=== PATIENT | female | born 1985 | race African-American/Black ===

== ENCOUNTER 2022-08-16 18:23 | Emergency (ER) | payer MEDICAID ==
[~2022-08-16] VITALS: Ht 170.2 cm; Wt 62.1 kg
[2022-08-16] MEDS ORDERED: HYDROMORPHONE 1 MG/1 ML DISP.SYRIN IM ONE (20:00)
[2022-08-16] MEDS ORDERED: ONDANSETRON ODT 4 MG TAB.RAPDIS SL ONE (20:00)
[2022-08-16] MEDS ORDERED: ONDANSETRON ODT 4 MG TAB.RAPDIS ONE (21:14)
[2022-08-16] MEDS ORDERED: HYDROMORPHONE 1 MG/1 ML DISP.SYRIN ONE (21:14)
--- NOTE | 2022-08-16 21:35 | NUR ---
Patient taken to CT via [facility] accompanied by
[2022-08-16] MEDS ORDERED: ONDA4TAB5 PO (22:59)
[2022-08-16] MEDS ORDERED: OXYC-128 PO (22:59)
--- NOTE | 2022-08-16 23:10 | NUR ---
Patient discharged to home in stable condition. Written and verbal after care instructions given. Patient verbalizes understanding of instructions. Stressed follow up or return to ER for worsening s/s. Addendum: 08/16/22 at [id number] by DELIA Instructed patient not to drive.
[2022-08-16 23:35] VITALS: BP 120/85
== END 2022-08-16 23:10 | disposition home or self-care (01) ==
LOC: ER 18:26
DX: S13.4XXA Sprain of ligaments of cervical spine, initial encounter (principal); S30.0XXA Contusion of lower back and pelvis, initial encounter; S20.229A Contusion of unspecified back wall of thorax, initial encounter; R10.2 Pelvic and perineal pain; Z79.899 Other long term (current) drug therapy; Z88.2 Allergy status to sulfonamides; Z88.8 Allergy status to other drugs, medicaments and biological substances; W10.9XXA Fall (on) (from) unspecified stairs and steps, initial encounter; Y93.89 Activity, other specified; Y92.89 Other specified places as the place of occurrence of the external cause; Y99.8 Other external cause status
CPT/HCPCS: 99285; 72125; 84702; 36415; 72128; 72131; 96372; J1170; A4663; Q0162